=== PATIENT | female | born 1945 | race Two or more races ===

== ENCOUNTER 2017-08-15 09:45 | Inpatient (IN) | payer OTHER, MEDICAID ==
[~2017-08-15] VITALS: Ht 154.9 cm; Wt 54.5 kg
[2017-08-15 10:43] LABS: BASOPHIL % 1.7 % (0-2); PLATELET COUNT 245 x10^3mcL (130-400); RED CELL DISTRIBUTION WIDTH 14.1 % (11.5-14.5)
[2017-08-15 10:58] LABS: CALCIUM 8.7 mg/dL (8.5-10.1); CARBON DIOXIDE 27.6 mmol/L (21-32); CHLORIDE SERUM 99 mmol/L (98-107); CREATININE SERUM 0.7 mg/dL (0.6-1.0); GLUCOSE SERUM 92 mg/dL (74-106); POTASSIUM SERUM 4.1 mmol/L (3.5-5.1); SODIUM SERUM 136 mmol/L (136-145)
[2017-08-15 11:05] LABS: ALBUMIN 3.7 g/dL (3.4-5.0); ALKALINE PHOSPHATASE 114 U/L (46-116); ALT/SGPT 148 U/L (14-59); AST/SGOT 90 U/L (15-37); BILIRUBIN TOTAL 1.04 mg/dL (0.20-1.00); LIPASE 125 IU/L (73-393)
[2017-08-15] MEDS ORDERED: CLARITIN10 MG PO (12:38)
[2017-08-15] MEDS ORDERED: ALENDRONATE SOD70 M2 PO (12:39)
[2017-08-15] MEDS ORDERED: METHIMAZOLE10 MG (12:39)
[2017-08-15 13:39] LABS: UA SPECIFIC GRAVITY <=1.005 (1.005-1.035); microscopic required? YES; urine erythrocyte 2+ (NEGATIVE)
[2017-08-15 14:00] LABS: CHOLESTEROL/HDL RATIO 2.7; MAGNESIUM 2.1 mg/dL (1.8-2.4); PHOSPHOROUS 3.3 mg/dL (2.5-4.9)
[2017-08-15 14:05] LABS: T3 TOTAL 0.94 ng/mL
[2017-08-15 14:07] LABS: FREE T4 1.11 ng/dL (0.76-1.46); FREE THYROXINE INDEX 2.7 ug/dL (1.4-4.5); T4(THYROXINE) 7.6 ug/dL (4.7-13.3)
[2017-08-15 14:18] LABS: AMPHETAMINE QUAL UR NONE DETECTED (NEG <=1000)
[2017-08-15 14:32] VITALS: BP 148/68
[2017-08-15 15:00] VITALS: BP 148/68
[2017-08-15] MEDS ORDERED: ENALAPRIL/HCTZ1 TAB PO (15:09)
[2017-08-15 21:42] VITALS: BP 126/52
[2017-08-16 06:28] LABS: ALKALINE PHOSPHATASE 97 U/L (46-116); ALT/SGPT 99 U/L (14-59); AST/SGOT 46 U/L (15-37); BILIRUBIN DIRECT 0.19 mg/dL (0.0-0.2); BILIRUBIN TOTAL 0.88 mg/dL (0.20-1.00); CALCIUM 8.2 mg/dL (8.5-10.1); CARBON DIOXIDE 25.1 mmol/L (21-32); CHLORIDE SERUM 105 mmol/L (98-107); CREATININE SERUM 0.7 mg/dL (0.6-1.0); GLUCOSE SERUM 91 mg/dL (74-106); MAGNESIUM 2.2 mg/dL (1.8-2.4); PHOSPHOROUS 3.7 mg/dL (2.5-4.9); POTASSIUM SERUM 4.4 mmol/L (3.5-5.1); SODIUM SERUM 140 mmol/L (136-145)
[2017-08-16 06:29] LABS: ALBUMIN 3.1 g/dL (3.4-5.0)
[2017-08-16 06:53] LABS: BASOPHIL % 1.2 % (0-2); PLATELET COUNT 229 x10^3mcL (130-400)
[2017-08-16 06:56] LABS: RED CELL DISTRIBUTION WIDTH 14.7 % (11.5-14.5)
[2017-08-16 09:11] VITALS: BP 136/59
[2017-08-16 18:10] VITALS: BP 106/56
[2017-08-16 21:30] VITALS: BP 118/46
[2017-08-17 05:59] VITALS: BP 108/47
[2017-08-17 06:44] LABS: BASOPHIL % 0.5 % (0-2); PLATELET COUNT 208 x10^3mcL (130-400)
[2017-08-17 06:58] LABS: RED CELL DISTRIBUTION WIDTH 14.6 % (11.5-14.5)
[2017-08-17 07:07] LABS: CARBON DIOXIDE 24.2 mmol/L (21-32); CHLORIDE SERUM 103 mmol/L (98-107); CREATININE SERUM 0.7 mg/dL (0.6-1.0); GLUCOSE SERUM 97 mg/dL (74-106); PHOSPHOROUS 3.5 mg/dL (2.5-4.9); POTASSIUM SERUM 3.7 mmol/L (3.5-5.1); SODIUM SERUM 136 mmol/L (136-145)
[2017-08-17 08:05] VITALS: Ht 154.9 cm; Wt 54.5 kg
[2017-08-17 09:50] VITALS: BP 125/48
[2017-08-17] MEDS ORDERED: LEVAQUIN750 MG PO (11:49)
[2017-08-17] MEDS ORDERED: BD LACTINEX1.4 MG PO (11:51)
[2017-08-17 13:14] VITALS: BP 108/47
== END 2017-08-17 15:31 | disposition home or self-care (01) | DRG 391 ==
LOC: ED 09:45 → DU 12:32
PROVIDERS: Emergency Medicine; Family Medicine; Internal Medicine Gastroenterology
PROC: 0F798DZ Dilation of Common Bile Duct with Intraluminal Device, Via Natural or Artificial Opening Endoscopic (ICD-10-PCS; principal; 2017-08-16 11:00)
PROC: BF101ZZ Fluoroscopy of Bile Ducts using Low Osmolar Contrast (ICD-10-PCS; 2017-08-16 11:00)
DX: K20.9 Esophagitis, unspecified (principal); K83.1 Obstruction of bile duct; N39.0 Urinary tract infection, site not specified; E72.20 Disorder of urea cycle metabolism, unspecified; E44.1 Mild protein-calorie malnutrition; I10 Essential (primary) hypertension; R31.9 Hematuria, unspecified; E03.9 Hypothyroidism, unspecified; D64.9 Anemia, unspecified; E05.90 Thyrotoxicosis, unspecified without thyrotoxic crisis or storm; M81.0 Age-related osteoporosis without current pathological fracture; Z90.49 Acquired absence of other specified parts of digestive tract; Z68.22 Body mass index [BMI] 22.0-22.9, adult; Z90.710 Acquired absence of both cervix and uterus
CPT/HCPCS: 43262; 76770; 83880; 84439; C1769; C2625; J0360; J1170; J1610; J1885; J1956; J2704; J3490; J7030; J7120; Q0092; Q0162; Q9967

== ENCOUNTER 2019-03-17 18:06 | Emergency (ER) | payer OTHER, MEDICAID ==
[~2019-03-17] VITALS: Ht 157.5 cm; Wt 55.3 kg
[~2019-03-17 18:06] MED LIST: ALENDRONATE SOD70 M2 PO; BD LACTINEX1.4 MG PO; CLARITIN10 MG PO; ENALAPRIL/HCTZ1 TAB PO; LEVAQUIN750 MG PO; METHIMAZOLE10 MG
[2019-03-17 18:11] VITALS: Ht 157.5 cm; Wt 55.3 kg
[2019-03-17 21:15] VITALS: BP 137/60
== END 2019-03-17 21:15 | disposition home or self-care (01) ==
LOC: ED 18:06
DX: S09.8XXA Other specified injuries of head, initial encounter (principal); S29.012A Strain of muscle and tendon of back wall of thorax, initial encounter; S39.012A Strain of muscle, fascia and tendon of lower back, initial encounter; I10 Essential (primary) hypertension; W18.09XA Striking against other object with subsequent fall, initial encounter; Y93.89 Activity, other specified; Y92.89 Other specified places as the place of occurrence of the external cause; Y99.8 Other external cause status